=== PATIENT | female | born 1985 | race Caucasian/White ===

== ENCOUNTER 2016-07-20 21:18 | Emergency (ER) | payer MEDICAID, MEDICARE ==
[~2016-07-20] VITALS: Ht 152.4 cm; Wt 53.1 kg
[2016-07-20 21:20] VITALS: BP_SYST 146
[2016-07-20] MEDS ORDERED: KETOROLAC TROMETHAMINE 60 MG/2 ML VIAL IM ONE (21:45)
== END 2016-07-20 22:15 | disposition home or self-care (01) ==
LOC: SED 21:18
DX: R51 Headache (principal); V89.2XXA Person injured in unspecified motor-vehicle accident, traffic, initial encounter; Y93.89 Activity, other specified; Y92.488 Other paved roadways as the place of occurrence of the external cause; Y99.8 Other external cause status
CPT/HCPCS: 81025; 96372; 99283; J1885

== ENCOUNTER 2016-08-01 19:10 | Inpatient (IN) | payer MEDICAID ==
[~2016-08-01] VITALS: Ht 152.4 cm; Wt 56.7 kg
[2016-08-01 19:14] VITALS: BP_SYST 137
[2016-08-01] MEDS ORDERED: NACL 0.9% 1,000 ML IV ONE ×2 (19:25→23:21)
[2016-08-01] MEDS ORDERED: ONDANSETRON HCL 4 MG/2 ML VIAL IVP ONE (19:30)
[2016-08-01 19:43] LABS: HEMATOCRIT 43.3 % (36-48); HEMOGLOBIN 14.1 g/dL (12.0-16.0); MEAN CORPUSCULAR HEMOGLOBIN 27 pg (27-31); MEAN CORPUSCULAR HGB CONC 33 % (32-36); MEAN CORPUSCULAR VOLUME 83 fL (79.0-98.0); PLATELET COUNT (AUTO) 345 K/uL (130-430); RED BLOOD CELL COUNT(AUTO) 5.23 MIL/uL (4.2-6.2); RED CELL DISTRIBUTION WIDTH 13.3 % (9.0-15.0); WHITE BLOOD COUNT (AUTO) 20.4 K/uL (4.8-10.8)
[2016-08-01 19:48] LABS: CALCIUM 8.6 mg/dL (8.4-11.0); CREATININE 0.79 mg/dL (0.55-1.30); POTASSIUM 3.9 mmol/L (3.5-5.1)
[2016-08-01 19:52] LABS: ALBUMIN 3.4 g/dL (3.4-4.8); TOTAL BILIRUBIN 0.5 mg/dL (0.0-1.0); TOTAL PROTEIN, SERUM 8.1 g/dL (6.4-8.3)
[2016-08-01 19:54] LABS: BILIRUBIN,URINE NEGATIVE (NEGATIVE); BLOOD, URINE NEGATIVE (NEGATIVE); CLARITY/URINE CLEAR (CLEAR); COLOR,URINE YELLOW (YELLOW); GLUCOSE,URINE NEGATIVE (NEGATIVE); KETONES,URINE NEGATIVE (NEGATIVE); LEUKOCYTE ESTERASE ,URINE 1+ (NEGATIVE); NITRITE, URINE NEGATIVE (NEGATIVE); PH,URINE 7.5 (5.0-8.0); PROTEIN URINE NEGATIVE (NEGATIVE); UROBILINOGEN,URINE 0.2 (0.2-1.0)
[2016-08-01 19:55] LABS: BAND % (MANUAL) 5 % (0-6)
[2016-08-01 19:56] LABS: BASOPHILS % (MANUAL) 0 % (0-2); EOSINOPHILS % (MANUAL) 3 % (0-7); LYMPHOCYTES % (MANUAL) 7 % (20-46); MONOCYTES % (MANUAL) 4 % (0-11)
[2016-08-01 20:00] LABS: BACTERIA,URINE MODERATE /HPF (None Seen); MUCUS,URINE None Seen /LPF (None Seen); RBC,URINE 0-3 /HPF (0-3)
[2016-08-01] MEDS ORDERED: KETOROLAC TROMETHAMINE 30 MG VIAL IVP ONE (20:30)
[2016-08-01] MEDS ORDERED: IOHEXOL 100 ML IV ONE (20:43)
[2016-08-01] MEDS ORDERED: MORPHINE 4 MG/ML INJ. SYRINGE IVP ONE (21:15)
[2016-08-01] MEDS ORDERED: DIPHENHYDRAMINE INJ 50 MG/ML VIAL ONE (22:16)
[2016-08-01] MEDS ORDERED: PIPERACILLIN/TAZO 4.5 GM in NS 100 ML IV ONE (23:30)
[2016-08-01] MEDS ORDERED: PIPERACILLIN/TAZOBACTAM 4.5 GM/VIAL (ZOSYN) IV ONE (23:43)
[2016-08-02] MEDS: NACL 0.9% 1,000 ML IV SCH ×2 (03:00→22:57)
[2016-08-02] MEDS ORDERED: ACETAMINOPHEN 325 MG TABLET PO PRN (03:00)
[2016-08-02] MEDS ORDERED: KETOROLAC TROMETHAMINE 15 MG VIAL IVP PRN (03:00)
[2016-08-02] MEDS ORDERED: MORPHINE 4 MG/ML INJ. SYRINGE IVP PRN (03:00)
[2016-08-02 03:26] VITALS: BP_SYST 125
[2016-08-02 04:00] VITALS: BP_SYST 119
[2016-08-02] MEDS ORDERED: PIPERACILLIN/TAZOBACTAM 4.5 GM/VIAL (ZOSYN) IV ONE (06:13)
[2016-08-02] MEDS: PIPERACILLIN/TAZO 4.5 GM in NS 100 ML IV SCH ×2 (06:33→13:42)
[2016-08-02 08:00] VITALS: BP_SYST 117
[2016-08-02 12:00] VITALS: BP_SYST 98
[2016-08-02] MEDS ORDERED: LOPERAMIDE HCL 2 MG CAPSULE PO PRN (14:30)
[2016-08-02 14:43] LABS: HEMOGLOBIN 12.4 g/dL (12.0-16.0); MEAN CORPUSCULAR HEMOGLOBIN 27 pg (27-31)
[2016-08-02] MEDS ORDERED: CIPROFLOXACIN HCL 500 MG TABLET PO ONE (14:45)
[2016-08-02] MEDS ORDERED: metroNIDAZOLE 500 MG TABLET PO ONE (14:45)
[2016-08-02 14:49] LABS: MEAN CORPUSCULAR HGB CONC 33 % (32-36)
[2016-08-02 14:51] LABS: MEAN CORPUSCULAR VOLUME 82 fL (79.0-98.0)
[2016-08-02 14:52] LABS: CALCIUM 8.3 mg/dL (8.4-11.0); CREATININE 0.73 mg/dL (0.55-1.30)
[2016-08-02 14:54] LABS: HEMATOCRIT 37.9 % (36-48); PLATELET COUNT (AUTO) 309 K/uL (130-430); RED BLOOD CELL COUNT(AUTO) 4.59 MIL/uL (4.2-6.2); RED CELL DISTRIBUTION WIDTH 13.6 % (9.0-15.0); WHITE BLOOD COUNT (AUTO) 17.2 K/uL (4.8-10.8)
[2016-08-02 14:56] LABS: ALBUMIN 3.2 g/dL (3.4-4.8); TOTAL BILIRUBIN 0.3 mg/dL (0.0-1.0)
[2016-08-02 15:04] LABS: BAND % (MANUAL) 3 % (0-6); BASOPHILS % (MANUAL) 0 % (0-2); EOSINOPHILS % (MANUAL) 8 % (0-7); LYMPHOCYTES % (MANUAL) 8 % (20-46); MONOCYTES % (MANUAL) 4 % (0-11)
[2016-08-02 16:00] VITALS: BP_SYST 119
[2016-08-02] MEDS: ONDANSETRON HCL 4 MG/2 ML VIAL IVP PRN ×2 (18:04→23:49)
[2016-08-02 19:20] VITALS: BP_SYST 118
[2016-08-02] MEDS: metroNIDAZOLE 500 MG TABLET PO SCH (22:30)
[2016-08-02] MEDS: CIPROFLOXACIN HCL 500 MG TABLET PO SCH (22:31)
[2016-08-03 00:13] VITALS: BP_SYST 124
[2016-08-03 04:28] VITALS: BP_SYST 125
[2016-08-03] MEDS: metroNIDAZOLE 500 MG TABLET PO SCH ×2 (05:15→13:36)
[2016-08-03] MEDS: NACL 0.9% 1,000 ML IV SCH (05:20)
[2016-08-03 07:01] LABS: CALCIUM 7.7 mg/dL (8.4-11.0); CREATININE 0.67 mg/dL (0.55-1.30); POTASSIUM 3.2 mmol/L (3.5-5.1)
[2016-08-03 07:07] LABS: EOSINOPHILS # (AUTO) 0.8 K/uL (0.0-0.4); EOSINOPHILS % (AUTO) 7.1 % (0.0-4.0); HEMATOCRIT 35.7 % (36-48); HEMOGLOBIN 11.7 g/dL (12.0-16.0); LYMPHOCYTES # (AUTO) 1.9 K/uL (1.0-5.5); LYMPHOCYTES % (AUTO) 16.6 % (20.5-51.5); MEAN CORPUSCULAR HEMOGLOBIN 27 pg (27-31); MEAN CORPUSCULAR HGB CONC 33 % (32-36); MEAN CORPUSCULAR VOLUME 83 fL (79.0-98.0); MONOCYTES # (AUTO) 1.2 K/uL (0.0-1.0); MONOCYTES % (AUTO) 10.3 % (1.7-9.3); NEUTROPHILS # (AUTO) 7.7 K/uL (1.8-7.7); PLATELET COUNT (AUTO) 306 K/uL (130-430); RED CELL DISTRIBUTION WIDTH 13.6 % (9.0-15.0); WHITE BLOOD COUNT (AUTO) 11.6 K/uL (4.8-10.8)
[2016-08-03 08:11] VITALS: BP_SYST 113
[2016-08-03] MEDS: CIPROFLOXACIN HCL 500 MG TABLET PO SCH (09:53)
[2016-08-03] MEDS ORDERED: POTASSIUM CHLORIDE 20 MEQ TAB.PRT.SR PO ONE (11:15)
[2016-08-03] MEDS ORDERED: CIPR-211 PO (11:26)
[2016-08-03] MEDS ORDERED: FLA250 PO (11:26)
[2016-08-03 11:42] VITALS: BP_SYST 113
[2016-08-03 12:20] VITALS: BP_SYST 121
== END 2016-08-03 14:12 | disposition home or self-care (01) | DRG 720 ==
LOC: SED 19:10 → SMU 08-02 02:57
PROVIDERS: ADMIT Internal Medicine; ATTEND Internal Medicine
DX: A41.9 Sepsis, unspecified organism (principal); E44.1 Mild protein-calorie malnutrition; N39.0 Urinary tract infection, site not specified; B96.20 Unspecified Escherichia coli [E. coli] as the cause of diseases classified elsewhere; E87.6 Hypokalemia; F17.200 Nicotine dependence, unspecified, uncomplicated; K52.9 Noninfective gastroenteritis and colitis, unspecified; Z68.24 Body mass index [BMI] 24.0-24.9, adult; Z82.49 Family history of ischemic heart disease and other diseases of the circulatory system; Z83.3 Family history of diabetes mellitus; Z79.899 Other long term (current) drug therapy
CPT/HCPCS: 36415; 76830-TC; 76857; 80048; 80053; 81000-TC; 81025; 83605; 83690-TC; 83735-TC; 84703; 85007; 85025; 85027; 87040-TC; 87045-TC; 87046; 87086; 87186-TC; 87230-TC; 89055; 96361; 96365; 96375; 99285; J1200; J1885; J2270; J2405; J2543; J7030; Q9967

== ENCOUNTER 2016-12-30 17:02 | Emergency (ER) | payer MEDICAID ==
[~2016-12-30] VITALS: Ht 152.4 cm; Wt 51.7 kg
[~2016-12-30 17:02] MED LIST: CIPR-211 PO; FLA250 PO
[2016-12-30 17:11] VITALS: BP_SYST 135
[2016-12-30 18:02] LABS: BASOPHILS # (AUTO) 0.1 K/uL (0.0-0.2); BASOPHILS % (AUTO) 0.6 % (0.0-2.0); EOSINOPHILS # (AUTO) 0.3 K/uL (0.0-0.4); HEMATOCRIT 37.2 % (36-48); HEMOGLOBIN 12.1 g/dL (12.0-16.0); LYMPHOCYTES % (AUTO) 25.9 % (20.5-51.5); MEAN CORPUSCULAR HEMOGLOBIN 27 pg (27-31); MEAN CORPUSCULAR HGB CONC 33 % (32-36); MEAN CORPUSCULAR VOLUME 83 fL (79.0-98.0); MONOCYTES # (AUTO) 0.9 K/uL (0.0-1.0); MONOCYTES % (AUTO) 7.4 % (1.7-9.3); NEUTROPHILS # (AUTO) 7.4 K/uL (1.8-7.7); NEUTROPHILS % (AUTO) 63.1 % (40.0-70.0); PLATELET COUNT (AUTO) 410 K/uL (130-430); RED BLOOD CELL COUNT(AUTO) 4.47 MIL/uL (4.2-6.2); RED CELL DISTRIBUTION WIDTH 13.4 % (9.0-15.0); WHITE BLOOD COUNT (AUTO) 11.7 K/uL (4.8-10.8)
[2016-12-30 18:13] LABS: CREATININE 0.76 mg/dL (0.55-1.30); POTASSIUM 3.4 mmol/L (3.5-5.1)
[2016-12-30 18:24] LABS: TOTAL BILIRUBIN 0.2 mg/dL (0.0-1.0)
--- NOTE | 2016-12-30 18:46 | NUR ---
Patient to ER bed 03 to gown for evaluation. Side rails up.
--- NOTE | 2016-12-30 19:30 | NUR ---
ER Dr. Tejada at bedside examining patient.
--- NOTE | 2016-12-30 19:37 | NUR ---
Patient AAOx4, ambulatory. Patient states having pain due to headache for approximately 5 days prior to ER visit. Patient states pain is located at center of forehead with pain scale 8/10; patient states pain is non-radiating and states she has not had any relief of pain. Patient states pain is an aching sensation. Patient states she took an pill approximately 2 weeks prior to ER visit and has had scant intermittent vaginal bleeding until now. Patient denies any other complaints.
--- NOTE | 2016-12-30 19:37 | NUR ---
Assumed care of patient. Patient denies pain, denies any complaints at this time.
[2016-12-30] MEDS ORDERED: IBUPROFEN 600 MG TABLET PO ONE (20:00)
[2016-12-30] MEDS ORDERED: ONDANSETRON 4 MG ODT TAB PO ONE (20:00)
[2016-12-30 20:10] VITALS: BP_SYST 132
--- NOTE | 2016-12-30 20:10 | NUR ---
Patient given written and verbal discharge instructions and verbalizes understanding. ER MD discussed with patient the results and treatment provided. Patient in stable condition. ID arm band removed. Rx of zofran and motrin given. Patient educated on pain management and to follow up with PMD. Pain Scale 2/10. Patient states pain is tolerable. Opportunity for questions provided and answered.
== END 2016-12-30 20:10 | disposition home or self-care (01) ==
LOC: SED 17:02
DX: Z33.2 Encounter for elective termination of pregnancy (principal); R51 Headache; Z86.2 Personal history of diseases of the blood and blood-forming organs and certain disorders involving the immune mechanism
CPT/HCPCS: 36415; 76830; 76857; 80053; 84702; 85025; 99285; Q0162

== ENCOUNTER 2017-08-21 08:08 | Emergency (ER) | payer MEDICAID ==
[~2017-08-21] VITALS: Ht 152.4 cm; Wt 54.4 kg
[2017-08-21 08:09] VITALS: BP_SYST 162
[2017-08-21 08:43] VITALS: BP_SYST 147
== END 2017-08-21 08:44 | disposition home or self-care (01) ==
LOC: SED 08:08
DX: J32.9 Chronic sinusitis, unspecified (principal); G62.9 Polyneuropathy, unspecified; Z86.2 Personal history of diseases of the blood and blood-forming organs and certain disorders involving the immune mechanism
CPT/HCPCS: 99283

== ENCOUNTER 2018-01-31 12:41 | Emergency (ER) | payer MEDICAID ==
[~2018-01-31] VITALS: Ht 162.6 cm; Wt 56.7 kg
[2018-01-31 12:45] VITALS: BP_SYST 146
[2018-01-31] MEDS ORDERED: NACL 0.9% 1,000 ML IV ONE (13:05)
[2018-01-31] MEDS ORDERED: CEFAZOLIN 1 GM IVPB PREMIX 50 ML IV ONE (13:15)
[2018-01-31] MEDS ORDERED: ONDANSETRON HCL 4 MG/2 ML VIAL IVP ONE (13:15)
[2018-01-31] MEDS ORDERED: DIPHENHYDRAMINE INJ 50 MG/ML VIAL IVP ONE (13:15)
[2018-01-31] MEDS ORDERED: KETOROLAC TROMETHAMINE 30 MG VIAL IVP ONE (13:15)
[2018-01-31] MEDS ORDERED: methylPREDNISolone SOD SUCC/PF 62.5 MG/ML VIAL IVP ONE (13:15)
[2018-01-31 13:37] LABS: BASOPHILS # (AUTO) 0.1 K/uL (0.0-0.2); EOSINOPHILS # (AUTO) 0.2 K/uL (0.0-0.4); EOSINOPHILS % (AUTO) 1.9 % (0.0-4.0); HEMATOCRIT 41.2 % (36-48); HEMOGLOBIN 13.5 g/dL (12.0-16.0); LYMPHOCYTES # (AUTO) 2.5 K/uL (1.0-5.5); LYMPHOCYTES % (AUTO) 20.6 % (20.5-51.5); MEAN CORPUSCULAR HEMOGLOBIN 28 pg (27-31); MEAN CORPUSCULAR HGB CONC 33 % (32-36); MEAN CORPUSCULAR VOLUME 84 fL (79.0-98.0); MONOCYTES # (AUTO) 0.8 K/uL (0.0-1.0); NEUTROPHILS # (AUTO) 8.5 K/uL (1.8-7.7); NEUTROPHILS % (AUTO) 69.5 % (40.0-70.0); PLATELET COUNT (AUTO) 428 K/uL (130-430); RED BLOOD CELL COUNT(AUTO) 4.91 MIL/uL (4.2-6.2); RED CELL DISTRIBUTION WIDTH 13.6 % (9.0-15.0); WHITE BLOOD COUNT (AUTO) 12.1 K/uL (4.8-10.8)
[2018-01-31 13:52] LABS: BILIRUBIN,URINE NEGATIVE (NEGATIVE); BLOOD, URINE 3+ (NEGATIVE); CLARITY/URINE SL HAZY (CLEAR); COLOR,URINE YELLOW (YELLOW); GLUCOSE,URINE NEGATIVE (NEGATIVE); KETONES,URINE NEGATIVE (NEGATIVE); LEUKOCYTE ESTERASE ,URINE NEGATIVE (NEGATIVE); NITRITE, URINE NEGATIVE (NEGATIVE); PROTEIN URINE TRACE (NEGATIVE); UROBILINOGEN,URINE 0.2 (0.2-1.0)
[2018-01-31 13:55] LABS: CALCIUM 8.8 mg/dL (8.4-11.0); CREATININE 0.67 mg/dL (0.55-1.30); POTASSIUM 3.4 mmol/L (3.5-5.1)
[2018-01-31 13:59] LABS: ALBUMIN 3.9 g/dL (3.4-4.8); TOTAL BILIRUBIN 0.4 mg/dL (0.0-1.0)
[2018-01-31 14:05] LABS: BARBITURATE, URINE NEGATIVE (NEG <=200); BENZODIAZEPINE, URINE NEGATIVE (NEG <=150); CANNABINOID, URINE NEGATIVE (NEG <=50); COCAINE, URINE NEGATIVE (NEG <=150); METHAMPHETAMINES SCREEN,URINE NEGATIVE (NEG <=500); OPIATE, URINE NEGATIVE (NEG <=100); PHENCYCLIDINE SCREEN,URINE NEGATIVE (NEG <=25); UR TRICYCLIC ANTIDEPRESSANTS NEGATIVE (NEG <=300); URINE AMPHETAMINE POSITIVE (NEG <=500); URINE METHADONE NEGATIVE (NEG <=200); URINE OXYCODONE SCREEN NEGATIVE (NEG <=100); URINE PROPOXYPHENE SCREEN NEGATIVE (NEG <=300)
[2018-01-31] MEDS ORDERED: ONDANSETRON HCL 4 MG/2 ML VIAL ONE (14:08)
[2018-01-31 14:14] LABS: BACTERIA,URINE FEW /HPF (None Seen); WBC,URINE 0-3 /HPF (0-3)
[2018-01-31 16:39] VITALS: BP_SYST 135
== END 2018-01-31 16:39 | disposition home or self-care (01) ==
LOC: SED 12:41
DX: O21.8 Other vomiting complicating pregnancy (principal); J32.9 Chronic sinusitis, unspecified; G43.909 Migraine, unspecified, not intractable, without status migrainosus; F17.200 Nicotine dependence, unspecified, uncomplicated; R03.0 Elevated blood-pressure reading, without diagnosis of hypertension; Z86.2 Personal history of diseases of the blood and blood-forming organs and certain disorders involving the immune mechanism; Z3A.01 Less than 8 weeks gestation of pregnancy
CPT/HCPCS: 36415; 76805; 80053; 80307; 81000; 81025; 84702; 85025; 86900; 86901; 96365; 96375; 99284; J0690; J1200; J1885; J2405; J2930; J7030